=== PATIENT | male | born 1995 | race Caucasian/White ===

== ENCOUNTER 2017-01-19 02:35 | Emergency (ER) | payer BC ==
[2017-01-19] MEDS ORDERED: LIDOCAINE/EPINEPH/TETRACAINE 1 EA SYR ONE (02:46)
[2017-01-19] MEDS ORDERED: LIDOCAINE/EPINEPH/TETRACAINE 1 EA SYR EXT STA (02:48)
[2017-01-19 02:49] VITALS: TEMP 36.8
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
[2017-01-19 04:07] VITALS: BP 144/83; PULSE 81; O2SAT 99
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
== END 2017-01-19 04:08 | disposition home or self-care (01) ==
LOC: C.EDB 02:37 → C.EDA 04:08
DX: S01.81XA Laceration without foreign body of other part of head, initial encounter (principal); Y04.0XXA Assault by unarmed brawl or fight, initial encounter; Y92.89 Other specified places as the place of occurrence of the external cause

== ENCOUNTER 2017-01-23 17:04 | Emergency (ER) | payer BC ==
[~2017-01-23] VITALS: Ht 172.7 cm; Wt 82.8 kg
[2017-01-23 17:10] VITALS: BP 114/62; PULSE 98; TEMP 36.9; O2SAT 98; Ht 172.7 cm; Wt 82.8 kg
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
== END 2017-01-23 17:35 | disposition home or self-care (01) ==
LOC: C.EDB 17:05 → C.EDD 17:35
DX: S01.81XD Laceration without foreign body of other part of head, subsequent encounter (principal); Y04.0XXD Assault by unarmed brawl or fight, subsequent encounter